=== PATIENT | female | born 1990 | race Asian ===

== ENCOUNTER 2018-06-13 10:37 | Emergency (ER) | payer OTHER ==
[~2018-06-13] VITALS: Ht 167.6 cm; Wt 46.3 kg
[2018-06-13 13:46] VITALS: BP 105/63
== END 2018-06-13 13:46 | disposition home or self-care (01) ==
LOC: ED 10:37
DX: B34.9 Viral infection, unspecified (principal); F41.9 Anxiety disorder, unspecified
CPT/HCPCS: 36600